=== PATIENT | female | born 1940 | race Caucasian/White ===

== ENCOUNTER → 2019-01-10 | Outpatient (CLI) | payer MEDICARE ==
--- NOTE | 2019-01-10 10:54 | Diagnostic Imaging Report ---
EXAMINATION: KNEE RIGHT 1-2 VIEWS INDICATION: Right knee pain COMPARISON: None FINDINGS: No acute fracture or dislocation. Alignment is anatomic. No substantial degenerative change. Moderate suprapatellar joint effusion. IMPRESSION: No acute osseous injury. Moderate suprapatellar joint effusion. Signed by: Juan Garcia MD on 01/10/2019 10:54 AM
== END ==
LOC: RAD 09:51
PROVIDERS: ATTEND Family Medicine
DX: M25.561 Pain in right knee (principal)